=== PATIENT | male | born 1955 | race Caucasian/White ===

== ENCOUNTER 2021-02-23 09:29 | Emergency (ER) | payer MEDICAID ==
[~2021-02-23] VITALS: Ht 165.1 cm; Wt 73.5 kg
--- NOTE | 2021-02-23 09:30 | NUR ---
MARIA R TRINIDAD VIA GURNEY TO BED 08.
[2021-02-23 09:40] VITALS: BP 151/84
--- NOTE | 2021-02-23 09:48 | NUR ---
65 Y/O M BIBA FROM HOME, NEAR SYNCOPE BUT DID NOT FALL, NO PAIN AT THIS TIME. SON CALLED EMS. PMH: HTN, DM
--- NOTE | 2021-02-23 10:42 | NUR ---
DR CARO AT BEDSIDE.
--- NOTE | 2021-02-23 10:54 | NUR ---
X-RAY AT BEDSIDE.
--- NOTE | 2021-02-23 11:00 | NUR ---
PT TO CT SCAN VIA [facility].
--- NOTE | 2021-02-23 11:04 | NUR ---
PT BACK FROM CT SCAN.
--- NOTE | 2021-02-23 11:16 | NUR ---
EKG AT BEDSIDE.
--- NOTE | 2021-02-23 11:21 | NUR ---
LAB AT BEDSIDE.
[2021-02-23 11:34] VITALS: BP 129/81
[2021-02-23 11:49] LABS: BASOPHILS % (AUTO) 0.5 % (0.0-2.0); EOSINOPHILS # (AUTO) 0.2 K/uL (0-0.4); EOSINOPHILS % (AUTO) 1.5 % (0.0-4.0); HEMATOCRIT 42.5 % (36-52); HEMOGLOBIN 14.1 g/dL (12.0-18.0); LYMPHOCYTES # (AUTO) 1.7 K/uL (2.0-11.5); LYMPHOCYTES % (AUTO) 15.9 % (20.5-51.1); MEAN CORPUSCULAR HEMOGLOBIN 28 pg (27-31); MEAN CORPUSCULAR HGB CONC 33 g/dL (33-37); MEAN CORPUSCULAR VOLUME 83.7 fL (80-94); MONOCYTES # (AUTO) 1.1 K/uL (0.8-1.0); MONOCYTES % (AUTO) 10.2 % (1.7-9.3); NEUTROPHILS # (AUTO) 7.7 K/uL (1.8-7.7); NEUTROPHILS % (AUTO) 71.9 % (42.2-75.2); PLATELET COUNT (AUTO) 260 K/uL (140-450); RED BLOOD CELL COUNT(AUTO) 5.07 MIL/uL (4.20-6.10); RED CELL DISTRIBUTION WIDTH 13.9 % (11.6-13.7); WHITE BLOOD COUNT (AUTO) 10.7 K/uL (4.8-10.8)
[2021-02-23 12:26] LABS: ALBUMIN 3.6 g/dL (3.4-5.0); ANION GAP 10.7 (8-16); CARBON DIOXIDE 30.9 mmol/L (21-32); CREATININE 1.2 mg/dL (0.6-1.3); POTASSIUM 4.6 mmol/L (3.5-5.1); THYROID STIMULATING HORMONE 4.37 uIU/mL (0.34-3.74); TOTAL BILIRUBIN 0.4 mg/dL (0.0-1.0)
[2021-02-23 12:38] LABS: PROTHROMBIN TIME 10.4 secs (10.8-13.4)
--- NOTE | 2021-02-23 13:22 | NUR ---
Patient discharged with v/s stable. Written and verbal after care instructions given and explained. Patient verbalized understanding. Ambulatory with steady gait. All questions addressed prior to discharge. Advised to follow up with PMD.
--- NOTE | 2021-02-23 13:24 | NUR ---
Chart checked and completed. The patient's care was reviewed and supervised by Virgen Peters RN.
== END 2021-02-23 13:22 | disposition home or self-care (01) ==
LOC: MED 09:29
DX: R53.1 Weakness (principal); E11.9 Type 2 diabetes mellitus without complications
CPT/HCPCS: 36415; 70450; 71045; 80053; 83036; 84443; 84484; 85025; 85610; 85730; 93005; 99285; Q0092